=== PATIENT | female | born 1960 | race Caucasian/White ===

== ENCOUNTER 2022-11-19 17:25 | Emergency (ER) | payer OTHER, SELFPAY ==
[2022-11-19 17:32] VITALS: BP 122/65; PULSE 81; RESP 18; TEMP 36.8; O2SAT 100; BMI 24.2
[2022-11-19 19:36] VITALS: BP 134/63; PULSE 75; RESP 18; O2SAT 100
--- NOTE | 2022-11-19 19:58 | ED.BACK ---
HPI - Back Pain/Injury General Chief Complaint: Back Pain/Injury Stated Complaint: muscle spasms Time Seen by Provider: 11/19/22 19:52 Source: patient History of Present Illness HPI Narrative: Patient is a 62-year-old female who presents today with left-sided thoracic pain. 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 She does not like Tylenol. She is no numbness or tingling in her arm she denies any weakness. No chest pain she denies any injury very active at work. Related Data Previous Rx's Medication Instructions Recorded cyclobenzaprine 5 mg tablet 5 mg PO TID PRN muscle spasm #10 11/19/22 tabs lidocaine 5 % topical patch 1 patch topical DAILY PRN pain 11/19/22 (scale score 4-6) #30 ea naproxen 500 mg tablet 500 mg PO BID PRN pain #30 tabs 11/19/22 Allergies Allergy/AdvReac Type Severity Reaction Status Date / Time morphine Allergy Palpitation Verified 11/19/22 17:32 s Penicillins Allergy Palpitation Verified 11/19/22 17:32 s Review of Systems Review of Systems ROS Unobtainable: All systems reviewed & are unremarkable except as noted in HPI and below Patient History Social History Smoking Status: Current every day smoker Smoking Status: Current every day smoker alcohol intake frequency: a few times a month Substance Use Type: does not use Exam Initial Vital Signs Initial Vital Signs: Vital Signs Temperature 98.3 F 11/19/22 17:32 Pulse Rate 81 11/19/22 17:32 Respiratory Rate 18 11/19/22 17:32 Blood Pressure 122/65 11/19/22 17:32 Pulse Oximetry 100 11/19/22 17:32 Oxygen Delivery Method Room Air 11/19/22 17:32 GENERAL: Alert 62-year-old female and in no acute distress. HEENT: Head atraumatic,EOMI, pupils reactive, CARDIOVASCULAR: Regular rate and rhythm without murmurs, rubs or gallops. RESPIRATORY: Breath sounds equal bilaterally, no wheezes rales or rhonchi. BACK: No vertebral tenderness she is tender to palpation right scapular area pain is definitely reproducible with palpation. EXTREMITIES: Normal range of motion, no clubbing or edema. Neurovascularly intact NEUROLOGICAL: Alert and oriented x4. SKIN: Warm, dry, no laceration, no petechiae, no rashes or lesions. Course Orders Ordered: Discontinued Medications Cyclobenzaprine HCl (Cyclobenzaprine 10 Mg Prepack) 1 bottle MISC SEEINSTR ONE Stop: 11/19/22 20:17 Last Admin: 11/19/22 20:21 Dose: 1 bottle Documented By: EUN Ketorolac Tromethamine (Ketorolac 30 Mg/Ml Vial) 30 mg IM NOW ONE Stop: 11/19/22 19:59 Last Admin: 11/19/22 20:10 Dose: 30 mg Documented By: EUN Vital Signs Vital signs: Vital Signs - 8 hr 11/19/22 17:32 11/19/22 19:36 Temperature 98.3 F Pulse Rate 81 75 Respiratory Rate 18 18 Blood Pressure 122/65 134/63 Pulse Oximetry 100 100 Oxygen Delivery Method Room Air Room Air MDM - Back Pain/Injury MDM Narrative Medical decision making narrative: Patient is a 62-year-old female with back pain ongoing for 5 days that is definitely reproducible with palpation and musculoskeletal in nature. She is given Toradol in the ED along with a prepack of Flexeril. He is not wanting anything narcotic. We discussed pain control at home. Lidocaine patches have also been prescribed. Discharge Plan Departure Patient Disposition: Home Clinical Impression: Back pain, thoracic, Muscle spasm Instructions: DI for Back Spasm Activity Restrictions/Additional Instructions: *You have been diagnosed with muscle spasm *What to do: It is possible you have a rib out. Recommend heating pad stretching increasing activity as tolerated. *Continue to take medications as directed Naproxen 500 mg twice a day if needed (do not combine with ibuprofen, Motrin, Aleve, Advil or other NSAIDs) Tylenol (acetaminophen) 1000 mg every 6 hours if needed for [id number] Flexeril 5 mg every 8 hours or at night if you need help sleeping (can cause drowsiness) Lidocaine patch over area of pain for 12 hours then remove *Follow up with your primary care provider in 2-3 days or call [phone] *Return to ER if you should have increasing pain numbness tingling weakness or any new, worsening or concerning symptoms Prescriptions: New naproxen 500 mg tablet 500 mg PO BID PRN (Reason: pain) Qty: 30 0RF Rx Instructions: administer with food or milk lidocaine 5 % adhesive patch,medicated 1 patch topical DAILY PRN (Reason: pain (scale score 4-6)) Qty: 30 0RF Rx Instructions: leave on most painful area for up to 12 hrs cyclobenzaprine 5 mg tablet 5 mg PO TID PRN (Reason: muscle spasm) Qty: 10 0RF Stand Alone Forms: Patient Portal/API
[2022-11-19] MEDS: KETOROLAC 30 MG/ML VIAL IM (20:10)
[2022-11-19] MEDS: CYCLOBENZAPRINE 10 MG PREPACK 1 BOTTLE MISC (20:21)
== END 2022-11-19 20:22 | disposition home or self-care (01) ==
PROVIDERS: Emergency Provider Emergency Medicine
DX: M54.6 Pain in thoracic spine (principal); M62.830 Muscle spasm of back
CPT/HCPCS: 96372; 99283; J1885

== ENCOUNTER → 2023-04-13 10:44 | Outpatient (CLI) | payer OTHER, SELFPAY ==
[2023-04-13 11:41] LABS: Influenza A - CEPHEID Flu A NEGATIVE (NEGATIVE); Influenza B - CEPHEID Flu B NEGATIVE (NEGATIVE); Respiratory Syncytial Virus POSITIVE (Negative)
[2023-04-13 11:49] LABS: COVID-19 CEPHEID 4-PLEX PCR Negative (Negative)
== END ==
PROVIDERS: Visit Provider Nurse Practitioner Family
DX: R05.1 Acute cough (principal)
CPT/HCPCS: 0241U

== ENCOUNTER 2023-04-16 19:45 | Emergency (ER) | payer OTHER, SELFPAY ==
[2023-04-16] VITALS (7 sets, daily range): BP systolic 121–136; BP diastolic 58–71; PULSE 80–83; RESP 16–22; TEMP 36.7–36.8; O2SAT 96–99; BMI 25.8
--- NOTE | 2023-04-16 20:00 | DI.RAD.S_ITS ---
PROCEDURE: XR SHOULDER RT MIN 2V INDICATIONS: COUGH/R SHOULDER PAIN TECHNIQUE: 3 views of the shoulder were acquired. COMPARISON: None. FINDINGS: Bones: No fractures or dislocations. No suspicious bony lesions. Visualized ribs appear intact. Soft tissues: No suspicious soft tissue calcifications. IMPRESSION: No acute bony abnormality. Dictated by: Damon Blair M.D. on 04/16/2023 at 20:53 Approved by: Damon Blair M.D. on 04/16/2023 at 20:53
--- NOTE | 2023-04-16 20:00 | DI.RAD.S_ITS ---
PROCEDURE: XR CHEST 1V INDICATIONS: R CHEST/SHOULDER PAIN WITH COUGH TECHNIQUE: One view of the chest was acquired. COMPARISON: None. FINDINGS: Surgical changes and devices: None. Lungs and pleura: Lungs are clear. No pleural effusions or pneumothorax. Calcified granuloma. Mediastinum: Mediastinal contours appear normal. Heart size is normal. Bones and chest wall: No suspicious bony lesions. Overlying soft tissues appear unremarkable. IMPRESSION: No acute cardiopulmonary abnormality is seen. Dictated by: Damon Blair M.D. on 04/16/2023 at 20:53 Approved by: Damon Blair M.D. on 04/16/2023 at 20:53
--- NOTE | 2023-04-16 20:02 | ED_ITS ---
HPI - Extremity Injury (Upper) General Chief Complaint: Upper Respiratory Symptoms Stated Complaint: lungs hurting, cough Time Seen by Provider: 04/16/23 19:53 Source: patient Mode of arrival: Ambulatory History of Present Illness HPI narrative: 63-year-old female with no reported past medical history presents for right- sided scapular pain and cough. Patient states she has had intermittent problems with her right shoulder for 5 months, she states that sometimes it is impossible to lift her arm over her head, but this waxes and wanes. She has gone to massage therapy, chiropractors, and used thermal rubs without relief. Three days ago patient went to walk-in clinic where she was diagnosed with RSV. She was continued to cough and this seems to be exacerbating her right shoulder pain. She was concerned there may be a problem with her shoulder or a lung infection. She has a primary care appointment on the . No oral medications taken at home for symptoms. Record review shows that patient was seen for thoracic pain in November 2022. She was discharged on Flexeril after being given Toradol. Related Data Previous Rx's Medication Instructions Recorded cyclobenzaprine 5 mg tablet 5 mg PO TID PRN muscle spasm #30 04/16/23 tabs Allergies Allergy/AdvReac Type Severity Reaction Status Date / Time morphine Allergy Palpitation Verified 04/13/23 10:44 s Penicillins Allergy Palpitation Verified 04/13/23 10:44 s Review of Systems Review of Systems Narrative: Negative except as noted above Patient History Social History Smoking Status: Current every day smoker Smoking Status: Current every day smoker alcohol intake frequency: a few times a month Substance Use Type: does not use Exam Initial Vital Signs Initial Vital Signs: Vital Signs Temperature 98.3 F 04/16/23 19:53 Pulse Rate 83 04/16/23 19:53 Respiratory Rate 16 04/16/23 19:53 Blood Pressure 136/71 04/16/23 19:53 Pulse Oximetry 99 04/16/23 19:53 Oxygen Delivery Method Room Air 04/16/23 19:53 Const: Awake, alert, no acute distress, nontoxic appearing Cardiac: regular rate, regular rhythm RESP: unlabored, clear bilaterally, no wheezing MSK: No midline tenderness, right-sided tenderness to palpation along subscapularis muscle, full ROM Skin: Warm, Dry, intact, no rashes Neuro: AO x3, CN II-XII grossly intact, moves all extremities Psych: affect normal, mood normal, not suicidal, not homicidal Course Orders Ordered: ED Orders 04/16/23 20:00 Chest [XR chest 1V] Stat XR shoulder RT min 2V Stat Discontinued Medications Cyclobenzaprine HCl (Cyclobenzaprine 10 Mg Prepack) 1 bottle MISC DIRECTED ONE Stop: 04/16/23 21:06 Last Admin: 04/16/23 21:22 Dose: 1 bottle Documented By: LUCITA Vital Signs Vital signs: Vital Signs - 8 hr 04/16/23 19:53 04/16/23 20:09 04/16/23 20:30 Temperature 98.3 F Pulse Rate 83 82 81 Respiratory Rate 16 19 17 Blood Pressure 136/71 Pulse Oximetry 99 96 98 Oxygen Delivery Method Room Air 04/16/23 21:00 04/16/23 21:05 04/16/23 21:06 Temperature Pulse Rate 81 80 Respiratory Rate 22 20 Blood Pressure 124/58 L Pulse Oximetry 97 Oxygen Delivery Method 04/16/23 21:30 Temperature 98.1 F Pulse Rate 81 Respiratory Rate 16 Blood Pressure 121/67 Pulse Oximetry 98 Oxygen Delivery Method Room Air MDM - Extremity Injury (Upper) Differential Diagnosis Differential diagnosis: Likely sprain and strain of wrist, dislocation of shoulder and fracture of clavicle MDM Narrative Medical decision making narrative: Well-appearing patient with ongoing right shoulder and subscapular pain. Cough has aggravated the pain and patient is concerned that since no x-rays have been done that she may have a lung infection or something else wrong with her shoulder. Patient has full range of motion of her shoulder, reproducible tenderness to palpation along the subscapular region. X-rays of the shoulder and chest negative for acute findings. Patient counseled to take Tylenol and NSAIDs as needed for pain. She has an upcoming primary care appointment within the next 2 weeks. Patient relieved to know that her x-rays are normal and we will keep her primary follow up as scheduled. ED return precautions discussed at bedside. Patient expressed understanding of the plan and is in agreement at this time. All questions answered at the time of discharge. Discharge Plan Departure Patient Disposition: Home Clinical Impression: Right shoulder strain, Cough Instructions: Cough, DI for Muscle Strain Prescriptions: New cyclobenzaprine 5 mg tablet 5 mg PO TID PRN (Reason: muscle spasm) Qty: 30 0RF Referrals: Miscellaneous,Doctor, MD [Primary Care Provider] - Stand Alone Forms: Patient Portal/API
[2023-04-16] MEDS: CYCLOBENZAPRINE 10 MG PREPACK 1 BOTTLE MISC (21:22)
== END 2023-04-16 21:30 | disposition home or self-care (01) ==
PROVIDERS: Emergency Provider Emergency Medicine
DX: S46.911A Strain of unspecified muscle, fascia and tendon at shoulder and upper arm level, right arm, initial encounter (principal); R05.9 Cough, unspecified; X58.XXXA Exposure to other specified factors, initial encounter
CPT/HCPCS: 71045; 73030; 99281; 99283

== ENCOUNTER → 2023-11-04 12:09 | Outpatient (CLI) | payer OTHER, SELFPAY ==
--- NOTE | 2023-11-04 12:16 | DI.RAD.S_ITS ---
PROCEDURE: XR SHOULDER RT MIN 2V INDICATIONS: RT ROTATOR CUFF TEAR/BURSITIS/IMPINGEMENT TECHNIQUE: 3 views of the shoulder were acquired. COMPARISON: [facility], CR, XR SHOULDER RT MIN 2V, 04/16/2023, 20:17. FINDINGS: Bones: No fractures or dislocations. No suspicious bony lesions. Visualized ribs appear intact. Soft tissues: No suspicious soft tissue calcifications. IMPRESSION: No acute bony abnormality. Dictated by: Severo Mack M.D. on 11/04/2023 at 15:39 Approved by: Severo Mack M.D. on 11/04/2023 at 15:40
== END ==
PROVIDERS: Referring Provider Family Medicine Sports Medicine; Visit Provider Family Medicine Sports Medicine
DX: M75.111 Incomplete rotator cuff tear or rupture of right shoulder, not specified as traumatic (principal); M75.51 Bursitis of right shoulder; M25.819 Other specified joint disorders, unspecified shoulder
CPT/HCPCS: 73030

== ENCOUNTER → 2024-09-28 17:07 | Outpatient (CLI) | payer OTHER, SELFPAY ==
[2024-09-28 18:01] LABS: COVID-19 CEPHEID 4-PLEX PCR Negative (Negative); Influenza A - CEPHEID Flu A NEGATIVE (NEGATIVE); Influenza B - CEPHEID Flu B NEGATIVE (NEGATIVE)
== END ==
PROVIDERS: Visit Provider Chiropractor
DX: R05.1 Acute cough (principal)
CPT/HCPCS: 87637

== ENCOUNTER 2024-10-09 19:21 | Emergency (ER) | payer OTHER, SELFPAY ==
[2024-10-09 19:37] VITALS: BP 145/66; PULSE 86; RESP 17; TEMP 36.7; O2SAT 99; BMI 27.4
[2024-10-09 23:05] VITALS: PULSE 85; O2SAT 98
[2024-10-09 23:06] VITALS: BP 160/68; PULSE 85; RESP 20; O2SAT 98
--- NOTE | 2024-10-10 00:38 | ED.WOUNDLAC ---
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 Bleeding controlled locally. Can not recall noted last tetanus shot. No other injuries recalled. Here for further evaluation and for labor and industry forms to be filled out. Related Data Allergies Allergy/AdvReac Type Severity Reaction Status Date / Time morphine AdvReac Palpitation Verified 10/09/24 19:37 s Penicillins AdvReac Palpitation Verified 10/09/24 19:37 s Patient History Medical History (Updated 10/10/24 @ 01:35 by Jony Macias MD) Spasm of right trapezius muscle alcohol intake frequency: a few times a month Exam Narrative Exam Narrative: GENERAL: Well-developed patient, in mild distress. HEAD: Atraumatic. Normocephalic. EYES: Pupils equal round and reactive. Extraocular motions intact. No scleral icterus. No injection or drainage. ENT: Nose without bleeding, purulent drainage. Throat without erythema, tonsillar hypertrophy or exudate. Airway patent. NECK: Trachea midline. Non tender CARDIOVASCULAR: Regular rate and rhythm without murmurs, gallops, or rubs. RESPIRATORY: Clear to auscultation. Breath sounds equal bilaterally. No wheezes, rales, or rhonchi. GASTROINTESTINAL: Abdomen soft, non-tender, nondistended. EXTREMITIES: Left middle finger with radial aspect small laceration 4 mm curvilinear tiny flap. Wound edges well approximated. Steri-Strips applied. No gross finger swelling. BACK: Nontender without deformity or crepitance. No flank tenderness. NEURO: AOx3. Motor functions grossly nonfocal. SKIN: No rash or erythema of visible areas Initial Vital Signs Initial Vital Signs: Vital Signs Temperature 98.1 F 10/09/24 19:37 Pulse Rate 86 10/09/24 19:37 Respiratory Rate 17 10/09/24 19:37 Blood Pressure 145/66 H 10/09/24 19:37 Pulse Oximetry 99 10/09/24 19:37 Oxygen Delivery Method Room Air 10/09/24 19:37 Course Orders Ordered: ED Orders 10/10/24 01:06 XR finger LT min 2V Stat Discontinued Medications Diphtheria/Tetanus/Acell Pertussis (Tet,Diph,Pertuss(Acell),Vac/Pf 0.5 Ml Syringe) 0.5 ml IM .ONCE ONE Stop: 10/10/24 01:09 Last Admin: 10/10/24 01:40 Dose: 0.5 ml Documented By: Arun Naproxen (Naproxen 250 Mg Tablet) 500 mg PO NOW ONE Stop: 10/10/24 01:31 Last Admin: 10/10/24 01:40 Dose: 500 mg Documented By: [facility] Vital Signs Vital signs: Vital Signs - 8 hr 10/09/24 19:37 10/09/24 23:05 10/09/24 23:06 Temperature 98.1 F Pulse Rate 86 85 Respiratory Rate 17 Blood Pressure 145/66 H 160/68 H Pulse Oximetry 99 98 Oxygen Delivery Method Room Air 10/09/24 23:06 Temperature Pulse Rate 85 Respiratory Rate 20 Blood Pressure Pulse Oximetry 98 Oxygen Delivery Method Room Air MDM - Wound/Laceration Imaging Data Extremity x-ray #1: Radiologist's Impression: [place] [address] XRay Report Signed Patient: Mary Ann Rawls MR#: [id number] : 1960 Acct:[id number] Age/Sex: 64 / F Date of Service: 10/10/24 Loc: ED Accession Number: [id number] Procedure: XR finger LT min 2V Ordering Provider: Jony Macias MD PROCEDURE: XR FINGER LT MIN 2V INDICATIONS: injury, eval fx/fb TECHNIQUE: AP hand, 2 views of the 3rd finger(s) acquired. COMPARISON: None. FINDINGS: Bones: No visualized fracture or dislocation. No suspicious osseous lesions. Soft tissues: No suspicious soft tissue calcifications. No radiopaque foreign body. IMPRESSION: No visualized acute fracture or dislocation. However, if clinical concern and/or pain persist, short interval imaging followup in 7-10 days is recommended, as occult injury cannot be definitively excluded. Dictated by: Isabel Urbina M.D. on 10/10/2024 at 1:27 Approved by: Isabel Urbina M.D. on 10/10/2024 at 1:30 [facility] Narrative Medical decision making narrative: Left middle finger laceration from knife cutting at work. Small nonsuturable laceration. Wound irrigation by nursing, dressed with Steri-Strips. X-ray without obvious fracture. Tetanus updated. Advised wound check in 2 days with the regular provider. Can work with gloved hand/finger to clean and dry until wound check, or off work if she is not able to perform this duty. Last tetanus possibly greater than 5 years ago, we would like update. IM Tdap given. Steri-Strips were applied after local wound cleansing by nurse, Steri-Strips single strand applied by nurse. Off work until wound check with PCP in 2 days. Phigital and industry forms filled out. Discharge Plan Departure Patient Disposition: Home Clinical Impression: Finger laceration Instructions: DI for Laceration Repair Activity Restrictions/Additional Instructions: Left middle fingertip area distal laceration from knife wound. X-ray without obvious fracture. Tetanus shot update given. Wound cleansing performed. Steri-Strip applied to small wound. Can work with left hand glove/finger covering, do not submerge or get wet. Wound check advised with your regular doctor in the next couple of days, to reassess for development of any infection, and reassessment of work status at that time. [employer] labor and industry forms filled out. Referrals: Kyra Reynoso MD [Primary Care Provider, Family Practice] Stand Alone Forms: Patient Portal/API, Work Release Note
--- NOTE | 2024-10-10 01:06 | DI.RAD.S_ITS ---
PROCEDURE: XR FINGER LT MIN 2V INDICATIONS: injury, eval fx/fb TECHNIQUE: AP hand, 2 views of the 3rd finger(s) acquired. COMPARISON: None. FINDINGS: Bones: No visualized fracture or dislocation. No suspicious osseous lesions. Soft tissues: No suspicious soft tissue calcifications. No radiopaque foreign body. IMPRESSION: No visualized acute fracture or dislocation. However, if clinical concern and/or pain persist, short interval imaging followup in 7-10 days is recommended, as occult injury cannot be definitively excluded. Dictated by: Isabel Urbina M.D. on 10/10/2024 at 1:27 Approved by: Isabel Urbina M.D. on 10/10/2024 at 1:30
[2024-10-10] MEDS: NAPROXEN 250 MG TABLET 500 MG PO (01:40)
[2024-10-10] MEDS: TET,DIPH,PERTUSS(ACELL),VAC/PF 0.5 ML SYRINGE IM (01:40)
== END 2024-10-10 02:20 | disposition home or self-care (01) ==
PROVIDERS: Emergency Provider Emergency Medicine; PCP Family Medicine
DX: S61.213A Laceration without foreign body of left middle finger without damage to nail, initial encounter (principal); W26.0XXA Contact with knife, initial encounter; Y92.59 Other trade areas as the place of occurrence of the external cause; Y99.0 Civilian activity done for income or pay; Z23 Encounter for immunization
CPT/HCPCS: 73140; 90471; 99284; 90715